=== PATIENT | female | born 1945 | race Caucasian/White ===

== ENCOUNTER → 2018-09-10 | Outpatient (CLI) | payer MEDICARE, OTHER ==
[~2018-09-10] MED LIST: DIATRIZOATE MEGL/DIATRIZOA SOD 30 ML BTL PO ONE; IOPAMIDOL 370 MG/ML 200 ML INFUS..BTL INJ ONE; SODIUM CHLORIDE 0.9% 50ML 50 ML ONE
[2018-09-10 08:55] LABS: BLOOD UREA NITROGEN 14 mg/dL (7-26); BUN/CREATININE RATIO 17 (6-25); CREATININE, SERUM 0.81 mg/dL (0.57-1.11); EST GLOMERULAR FILTRATION RATE > 60 ML/MIN (60-)
--- NOTE | 2018-09-10 10:00 | Diagnostic Imaging Report ---
PROCEDURE: CT ABDOMEN AND PELVIS WITH CONTRAST TECHNIQUE: The abdomen and pelvis were scanned utilizing a multidetector helical scanner from the diaphragm to the lesser trochanter after the IV administration of 100 cc of Isovue 370 and the oral administration of 900 cc of Gastrografin and water. Coronal and sagittal multiplanar reformations were obtained. COMPARISON: None. INDICATIONS: Query RLQ Abdominal mass FINDINGS: LOWER THORAX: Linear subsegmental atelectasis in the left lower lobe. HEPATOBILIARY: No focal hepatic lesions. No biliary ductal dilatation. Status post cholecystectomy. SPLEEN: No splenomegaly. PANCREAS: No focal masses or ductal dilatation. ADRENALS: No adrenal nodules. KIDNEYS/URETERS: No hydronephrosis, stones, or solid mass lesions. PELVIC ORGANS/BLADDER: Post surgical changes to the bladder. Mildly circumferentially thick walled bladder. PERITONEUM / RETROPERITONEUM: No free air or fluid. LYMPH NODES: No lymphadenopathy. VESSELS: Moderate atherosclerotic calcifications of the abdominal aorta and branch vessels. Accessory left renal artery. GI TRACT: There is an ileal anastomosis in the right lower quadrant. At the anastomosis, there is a dilated ileal loop measuring up to 3.8 cm, with decompressed small bowel loops distal to this point on series 2, image 48. There are additional dilated mid small bowel loops measuring up to 3.8 cm on series 2, image 26 without clear transition point. Air and contrast is seen in non-distended large bowel loops. Status post gastric band, the connection tubing is not contiguous with the access port at the level of the anterior abdominal wall mesh. Sigmoid diverticulosis without CT evidence of diverticulitis. Mild distal esophageal wall thickening which may reflect esophagitis. BONES AND SOFT TISSUES: Status post mesh repair of anterior abdominal wall hernia. No evidence of recurrent hernia. No acute bony findings. Mild degenerative disc changes of the lumbar spine. IMPRESSION: Findings of partial small bowel obstruction with multiple mildly dilated small bowel loops, likely secondary to adhesions, given extensive surgical history. However air and contrast is seen in the colon distally. No evidence of high grade obstruction. No evidence of right lower quadrant mass as clinically queried. Anterior abdominal wall hernia mesh repair without evidence of recurrent hernia. Gastric lap band with discontinuous connector tubing as above. Mild wall thickening in the distal esophagus which may reflect esophagitis. Post surgical changes to the bladder which is mildly circumferentially thick walled, which could reflect underdistention or cystitis in the appropriate clinical context. Dictated by: ARTURO ISAAC M.D. on 09/10/2018 at 10:09 Electronically approved by: ARTURO ISAAC M.D. on 09/10/2018 at 10:09
== END ==
LOC: CT 07:27
PROVIDERS: ATTEND Family Medicine
DX: R19.03 Right lower quadrant abdominal swelling, mass and lump (principal)
CPT/HCPCS: 36415; 74177; 82565; 84520; Q9967

== ENCOUNTER → 2021-09-29 | Outpatient (CLI) | payer MEDICARE, OTHER | LOC: MAMMO 10:54 | PROVIDERS: ATTEND Family Medicine | DX: Z12.31 Encounter for screening mammogram for malignant neoplasm of breast (principal) | CPT/HCPCS: 77067 ==

== ENCOUNTER → 2021-10-21 | Outpatient (CLI) | payer MEDICARE, OTHER | LOC: MAMMO 12:55 | PROVIDERS: ATTEND Family Medicine | DX: R92.8 Other abnormal and inconclusive findings on diagnostic imaging of breast (principal) ==